=== PATIENT | female | born 1965 | race Caucasian/White ===

== ENCOUNTER 2022-11-27 13:01 | Observation (INO) ==
--- NOTE | 2022-11-27 13:13 | ED Triage Note ---
Date of Service November 27, 2022 History of Present Illness This patient was briefly evaluated while in triage. An abbreviated physical exam was performed. This patient is a 57-year-old Female who presents to the ED for evaluation of neck pain. This started Friday. No recent injury or trauma. She was active henson nday and lifting. She then went home and the pain started. Feels like "heart beat" in the back of her head. Pain with swallowing. Tried ibuprofen for the pain. 10:30-11am took 800mg of ibuprofen. Physical Exam GENERAL: 57 year old female. In no acute distress. SKIN: No lesions or rashes. HEART: Regular rate and rhythm. LUNGS: Clear to auscultation. NEURO: Alert and oriented. No deficits. MUSCULOSKELETAL: No deformities to inspection of the extremities. PSYCH: Patient is pleasant and answers all questions appropriately. Initial orders for labs and / or imaging were placed and patient was placed in the waiting area until a bed is available. Please see further documentation for the full ED course.
[2022-11-27 14:02] LABS: Basophils # (auto) 0.04 K/uL (0-0.2); Basophils % (auto) 0.4 %; Eosinophils # (auto) 0.09 K/uL (0-0.50); Eosinophils % (auto) 0.8 %; Hematocrit (blood only) 44.1 % (37.0-47.0); Hemoglobin 14.6 g/dl (12.0-16.0); Immature Granulocytes # (auto) 0.04 K/uL (0.01-0.20); Immature Granulocytes % (auto) 0.4 %; Lymphocytes # (auto) 2.44 K/uL (1.2-3.4); Lymphocytes % (auto) 22.3 %; Mean Corpuscular Hemoglobin 27.6 pg (25.0-34.0); Mean Corpuscular Hgb Conc 33.1 g/dL (32.0-36.0); Mean Corpuscular Volume 83.4 fL (80.0-100.0); Mean Platelet Volume 9.8 fL (9.4-12.4); Monocytes # (auto) 0.51 K/uL (0.11-0.59); Monocytes % (auto) 4.7 %; Neutrophils # (auto) 7.84 K/uL (1.40-6.50); Neutrophils % (auto) 71.4 %; Platelet Count 369 K/uL (130-400); RDW Coefficient of Variation 13.2 % (11.5-14.5); RDW Standard Deviation 40.2 fL (36.4-46.3); Red Blood Count 5.29 M/uL (4.20-5.40); White Blood Count 10.96 K/ul (4.8-10.8)
[2022-11-27 14:16] LABS: Albumin Globulin Ratio 1.3 (0.9-2); Albumin Level 4.4 gm/dl (3.4-5.0); BUN Creatinine Ratio 22.9 (10-20); Bilirubin,Total 0.3 mg/dl (0.2-1.0); Calcium 9.9 mg/dl (8.6-10.3); Creatinine Clr Calc Pharmacy 72.5 ml/min; Est GFR (African American) 76.6 ml/min; Est GFR (Non-African American) 66.1 ml/min; Globulin 3.3 gm/dl (2.5-4.0); Potassium 3.7 mmol/L (3.5-5.1); Total Protein 7.7 gm/dl (6.0-8.3)
--- NOTE | 2022-11-27 14:16 | Emergency Department Note ---
History of Present Illness General Chief complaint: Neck Injury/Pain Stated complaint: NECK PAIN Time Seen by Provider: 11/27/22 13:14 History of Present Illness Maximum Pain Intensity: 5 This is a 57-year-old female that presents to the emergency department via private vehicle with complaints of "neck pain". Patient notes that the neck pain began on Friday. No known trauma or injury. She does note that during the day she was watching/caring for a family member and picking her up throughout the day. She notes worsening pain since that time. She feels a "heartbeat"/pulsatile type sensation to the back of the neck. She notes pain worsens when she swallows. She denies any fevers or chills. No nausea or vomiting. No chest pain or shortness of breath. Patient does note that she has been having her thyroid followed in the outpatient setting. She notes pain is worse when she attempts to move the head left or right/move the neck. No anterior neck pain. She also noted some dizziness last Friday beyond her baseline. Home Medications Medication Instructions Recorded Confirmed Type aspirin 81 mg tablet,delayed 81 mg PO DAILY 11/27/22 11/27/22 History release dulaglutide 1.5 mg/0.5 mL 1.5 mg subcut WK 11/27/22 11/27/22 History subcutaneous pen injector (Trulicity) empagliflozin 25 mg tablet 25 mg PO DAILY 11/27/22 11/27/22 History (Jardiance) ezetimibe 10 mg tablet 10 mg PO DAILY 11/27/22 11/27/22 History fenofibrate 160 mg tablet 160 mg PO DAILY 11/27/22 11/27/22 History hydrochlorothiazide 25 mg tablet 25 mg PO DAILY 11/27/22 11/27/22 History ibuprofen 400 mg tablet 400 mg PO Q6H PRN Pain 11/27/22 11/27/22 History lisinopril 30 mg tablet 30 mg PO DAILY 11/27/22 11/27/22 History metformin 1,000 mg tablet 1,000 mg PO BIDM 11/27/22 11/27/22 History potassium chloride 10 mEq 10 meq PO BID 11/27/22 11/27/22 History tablet,extended release(part/cryst) (Klor-Con M) Allergies Allergy/AdvReac Type Severity Reaction Status Date / Time No Known Allergies Allergy Unverified 11/22/12 09:49 Past Med/Surg History Medical History Diabetes Diabetes mellitus, type II Dyslipidemia HTN (hypertension) Social History Smoking Status: Never smoker Feels Safe at Home: Yes Review of Systems A total of 10 systems reviewed and were otherwise negative Physical Exam Vital Signs Vital Signs - 24 hr 11/27/22 13:11 11/27/22 16:49 11/27/22 18:15 Temperature 37.0 C Temperature Source Temporal Artery Scan Pulse Rate 76 Pulse Rate [Finger] 76 76 Respiratory Rate 18 18 18 Respiratory Effort / Characteristics Non-Labored Spontaneous Respiratory Depth Normal Respiratory Pattern Regular Blood Pressure 134/84 Blood Pressure [Right Arm] 130/85 135/88 Blood Pressure Mean 100 Blood Pressure Mean [Right Arm] 100 103 Blood Pressure Position Sitting Pulse Oximetry 99 97 99 Oxygen Delivery Method Room Air Room Air Room Air Sepsis Recent Fever Within 48 Hours No Sepsis New/Unexplained Change in Mental Status N/A Sepsis Action Taken by Nursing No Action Required VITAL SIGNS - Vital signs and nursing notes were reviewed. Stable and afebrile. GENERAL -57-year-old female appearing her stated age who is in no acute di stress. Communicates well with provider and answers questions appropriately. SKIN - Without rashes. No meningeal or petechial rash. The skin overlying the neck is unremarkable. No break in the integument. No erythema or edema. HEAD - NC/AT. EYES - PERRL with EOMI bilaterally. Sclera anicteric. EARS - No deformities of external structures noted on gross examination bilaterally. NOSE - Midline and without cyanosis. No epistaxis or purulent drainage noted. MOUTH/OROPHARYNX - Without perioral cyanosis. Buccal mucosa pink and moist and without leukoplakia. Tongue midline with equal elevation of palate bilaterally. No tonsillar hypertrophy, erythema, or exudates noted. Good dentition noted. NECK - Neck decreased ROM noting pain. Supple to palpation. No lymphadenopathy noted. No nuchal rigidity. There is reproducible tenderness palpation overlying the bilateral paraspinous musculature of the C-spine and superior trapezius bilaterally. LUNGS - Chest wall symmetric without accessory muscle use, intercostals retractions, or central cyanosis. Normal vesicular breath sounds CTA B/L. No wh eezes, rales, or rhonchi appreciated. CARDIAC - RRR with S1/S2. No murmur, rubs, or gallops appreciated. EXTREMITIES - No clubbing or peripheral cyanosis. +5/5 strength noted in UE/LE bilaterally. NEUROLOGIC - Cranial nerves II through XII grossly intact. PSYCH - A&Ox3 and cooperates fully with examiner. Pt is very pleasant and interacts well with examiner. Course Administered Medications Discontinued Medications Acetaminophen (Acetaminophen 325 Mg Tab) 650 mg PO NOW STA Stop: 11/27/22 18:10 Last Admin: 11/27/22 18:18 Dose: 650 mg Documented By: CRISTELA Diazepam (Diazepam 5 Mg Tablet) 5 mg PO NOW ONE Stop: 11/27/22 18:09 Last Admin: 11/27/22 18:18 Dose: 5 mg Documented By: CRISTELA Ioversol (Optiray 320 500ml) 112 ml IV ONCE ONE Stop: 11/27/22 15:07 Last Admin: 11/27/22 15:07 Dose: 112 ml Documented By: SETH Medical Decision Making Laboratory Data 11/27/22 13:33 11/27/22 13:33 Lab Results 11/27/22 11/27/22 11/27/22 Range/Units 13:33 13:33 13:33 WBC 10.96 H (4.8-10.8) K/ul RBC 5.29 (4.20-5.40) M/uL Hgb 14.6 (12.0-16.0) g/dl Hct 44.1 (37.0-47.0) % MCV 83.4 (80.0-100.0) fL MCH 27.6 (25.0-34.0) pg MCHC 33.1 (32.0-36.0) g/dL RDW Std Deviation 40.2 (36.4-46.3) fL RDW Coeff of Teodora 13.2 (11.5-14.5) % Plt Count 369 (130-400) K/uL MPV 9.8 (9.4-12.4) fL Immature Gran % (Auto) 0.4 % Neut % (Auto) 71.4 % Lymph % (Auto) 22.3 % [place] % (Auto) 4.7 % Eos % (Auto) 0.8 % Baso % (Auto) 0.4 % Neut # (Auto) 7.84 H (1.40-6.50) K/uL Lymph # (Auto) 2.44 (1.2-3.4) K/uL [place] # (Auto) 0.51 (0.11-0.59) K/uL Eos # (Auto) 0.09 (0-0.50) K/uL Baso # (Auto) 0.04 (0-0.2) K/uL Immature Gran # (Auto) 0.04 (0.01-0.20) K/uL PT 10.6 (9.0-12.0) Seconds INR 1.0 (0.9-1.1) APTT 30.1 (21.0-31.0) Seconds PTT Ratio 1.1 Sodium 141 (136-145) mmol/L Potassium 3.7 (3.5-5.1) mmol/L Chloride 102 (98-107) mmol/L Carbon Dioxide 27 (21-32) mmol/L Anion Gap 12 H (3-11) BUN 22 (6-23) mg/dl Creatinine 0.96 (0.6-1.2) mg/dl Est Cr Clr Drug Dosing 72.5 ml/min Est GFR ( Amer) 76.6 ml/min Est GFR (Non-Af Amer) 66.1 ml/min BUN/Creatinine Ratio 22.9 H (10-20) Glucose 180 H (70-99(Fasting)) mg/dl POC Glucose (70-99) mg/dl Calcium 9.9 (8.6-10.3) mg/dl Total Bilirubin 0.3 (0.2-1.0) mg/dl AST 20 (13-39) U/L ALT 20 (7-52) U/L Alkaline Phosphatase 53 (34-104) U/L Total Protein 7.7 (6.0-8.3) gm/dl Albumin 4.4 (3.4-5.0) gm/dl Globulin 3.3 (2.5-4.0) gm/dl Albumin/Globulin Ratio 1.3 (0.9-2) Anaplasma Smear Lyme Disease IgG Ab (Negative) Lyme Disease IgM Ab (Negative) SARS-CoV-2, RNA, NAAT (NEGATIVE) 11/27/22 11/27/22 11/27/22 Range/Units 13:33 13:33 17:13 WBC (4.8-10.8) K/ul RBC (4.20-5.40) M/uL Hgb (12.0-16.0) g/dl Hct (37.0-47.0) % MCV (80.0-100.0) fL MCH (25.0-34.0) pg MCHC (32.0-36.0) g/dL RDW Std Deviation (36.4-46.3) fL RDW Coeff of Teodora (11.5-14.5) % Plt Count (130-400) K/uL MPV (9.4-12.4) fL Immature Gran % (Auto) % Neut % (Auto) % Lymph % (Auto) % [place] % (Auto) % Eos % (Auto) % Baso % (Auto) % Neut # (Auto) (1.40-6.50) K/uL Lymph # (Auto) (1.2-3.4) K/uL [place] # (Auto) (0.11-0.59) K/uL Eos # (Auto) (0-0.50) K/uL Baso # (Auto) (0-0.2) K/uL Immature Gran # (Auto) (0.01-0.20) K/uL PT (9.0-12.0) Seconds INR (0.9-1.1) APTT (21.0-31.0) Seconds PTT Ratio Sodium (136-145) mmol/L Potassium (3.5-5.1) mmol/L Chloride (98-107) mmol/L Carbon Dioxide (21-32) mmol/L Anion Gap (3-11) BUN (6-23) mg/dl Creatinine (0.6-1.2) mg/dl Est Cr Clr Drug Dosing ml/min Est GFR ( Amer) ml/min Est GFR (Non-Af Amer) ml/min BUN/Creatinine Ratio (10-20) Glucose (70-99(Fasting)) mg/dl POC Glucose (70-99) mg/dl Calcium (8.6-10.3) mg/dl Total Bilirubin (0.2-1.0) mg/dl AST (13-39) U/L ALT (7-52) U/L Alkaline Phosphatase (34-104) U/L Total Protein (6.0-8.3) gm/dl Albumin (3.4-5.0) gm/dl Globulin (2.5-4.0) gm/dl Albumin/Globulin Ratio (0.9-2) Anaplasma Smear See Comment Lyme Disease IgG Ab Negative (Negative) Lyme Disease IgM Ab Negative (Negative) SARS-CoV-2, RNA, NAAT NEGATIVE (NEGATIVE) 11/27/22 Range/Units 18:17 WBC (4.8-10.8) K/ul RBC (4.20-5.40) M/uL Hgb (12.0-16.0) g/dl Hct (37.0-47.0) % MCV (80.0-100.0) fL MCH (25.0-34.0) pg MCHC (32.0-36.0) g/dL RDW Std Deviation (36.4-46.3) fL RDW Coeff of Teodora (11.5-14.5) % Plt Count (130-400) K/uL MPV (9.4-12.4) fL Immature Gran % (Auto) % Neut % (Auto) % Lymph % (Auto) % [place] % (Auto) % Eos % (Auto) % Baso % (Auto) % Neut # (Auto) (1.40-6.50) K/uL Lymph # (Auto) (1.2-3.4) K/uL [place] # (Auto) (0.11-0.59) K/uL Eos # (Auto) (0-0.50) K/uL Baso # (Auto) (0-0.2) K/uL Immature Gran # (Auto) (0.01-0.20) K/uL PT (9.0-12.0) Seconds INR (0.9-1.1) APTT (21.0-31.0) Seconds PTT Ratio Sodium (136-145) mmol/L Potassium (3.5-5.1) mmol/L Chloride (98-107) mmol/L Carbon Dioxide (21-32) mmol/L Anion Gap (3-11) BUN (6-23) mg/dl Creatinine (0.6-1.2) mg/dl Est Cr Clr Drug Dosing ml/min Est GFR ( Amer) ml/min Est GFR (Non-Af Amer) ml/min BUN/Creatinine Ratio (10-20) Glucose (70-99(Fasting)) mg/dl POC Glucose 111 H (70-99) mg/dl Calcium (8.6-10.3) mg/dl Total Bilirubin (0.2-1.0) mg/dl AST (13-39) U/L ALT (7-52) U/L Alkaline Phosphatase (34-104) U/L Total Protein (6.0-8.3) gm/dl Albumin (3.4-5.0) gm/dl Globulin (2.5-4.0) gm/dl Albumin/Globulin Ratio (0.9-2) Anaplasma Smear Lyme Disease IgG Ab (Negative) Lyme Disease IgM Ab (Negative) SARS-CoV-2, RNA, NAAT (NEGATIVE) Imaging Data Radiologist's Impression: Head CTA 11/27/22 13:13 CT angio neck with con, CT angio head wo/w CLINICAL HISTORY: Posterior neck pain, pulsatile discomfort TECHNIQUE: Contiguous axial CT images of the head were acquired from the base of the skull to the vertex without intravenous contrast administration. CT angiography of the head and neck was performed following intravenous administration of iodinated contrast. Coronal and sagittal MIPS were obtained from the axial data set and were submitted for review. Automated dose lowering techniques and/or adjustment according to patient size were utilized for this examination. All measurements were calculated based on NASCET criteria. CT DOSE: 979.87 mGy.cm Comparison: None available at the time of this dictation. FINDINGS: CT head: There is no acute intracranial hemorrhage or evidence of acute territorial infarction. There is a ill-defined enhancing mass at the left skull base which is traversed by the right internal carotid artery. Small thyroid nodules are seen which do not require follow-up by ACR criteria. CTA Neck: A 3 vessel aortic arch is shown. There is no significant atherosclerotic plaque in the aortic arch or the origins of the innominate, left common carotid, and left subclavian arteries. The common carotid, external carotid, cervical segments of the internal carotid arteries, and the cervical segments of the vertebral arteries are patent without hemodynamically significant stenosis. The right vertebral artery is dominant. CTA Head: The anterior and posterior cerebral circulations are patent. origin of the bilateral posterior cerebral arteries noted. IMPRESSION: 1. There is an enhancing left skull base lesion without significant underlying bony erosion. Findings are nonspecific but may represent benign or malignant neoplasm. No arterial aneurysm is seen. MRI with contrast is recommended for further evaluation. 2. No occlusion, hemodynamically significant stenosis, or dissection in the major cervical arteries. 3. No occlusion, hemodynamically significant stenosis, aneurysm, dissection, or arteriovenous malformation in the major intracranial arteries. Assessment of stenosis of the internal carotid arteries is based on NASCET criteria. ACT 112: Positive. There are findings on this exam that require communication between the performing entity and the patient following Patient Test Result Information Act ([place] Act 112) guidelines. Electronically signed by: Ignacio Cerna M.D. 11/27/2022 3:33 PM Neck CTA 11/27/22 13:13 CT angio neck with con, CT angio head wo/w CLINICAL HISTORY: Posterior neck pain, pulsatile discomfort TECHNIQUE: Contiguous axial CT images of the head were acquired from the base of the skull to the vertex without intravenous contrast administration. CT angiography of the head and neck was performed following intravenous administration of iodinated contrast. Coronal and sagittal MIPS were obtained from the axial data set and were submitted for review. Automated dose lowering techniques and/or adjustment according to patient size were utilized for this examination. All measurements were calculated based on NASCET criteria. CT DOSE: 979.87 mGy.cm Comparison: None available at the time of this dictation. FINDINGS: CT head: There is no acute intracranial hemorrhage or evidence of acute territorial infarction. There is a ill-defined enhancing mass at the left skull base which is traversed by the right internal carotid artery. Small thyroid nodules are seen which do not require follow-up by ACR criteria. CTA Neck: A 3 vessel aortic arch is shown. There is no significant atherosclerotic plaque in the aortic arch or the origins of the innominate, left common carotid, and left subclavian arteries. The common carotid, external carotid, cervical segments of the internal carotid arteries, and the cervical segments of the vertebral arteries are patent without hemodynamically significant stenosis. The right vertebral artery is dominant. CTA Head: The anterior and posterior cerebral circulations are patent. origin of the bilateral posterior cerebral arteries noted. IMPRESSION: 1. There is an enhancing left skull base lesion without significant underlying bony erosion. Findings are nonspecific but may represent benign or malignant ne oplasm. No arterial aneurysm is seen. MRI with contrast is recommended for further evaluation. 2. No occlusion, hemodynamically significant stenosis, or dissection in the major cervical arteries. 3. No occlusion, hemodynamically significant stenosis, aneurysm, dissection, or arteriovenous malformation in the major intracranial arteries. Assessment of stenosis of the internal carotid arteries is based on NASCET criteria. ACT 112: Positive. There are findings on this exam that require communication between the performing entity and the patient following Patient Test Result Information Act ([place] Act 112) guidelines. Electronically signed by: Ignacio Cerna M.D. 11/27/2022 3:33 PM MDM Narrative Patient was seen and evaluated as above in room D09. Review was performed of triage nursing notes and vital signs. After obtaining a thorough history and physical examination the above work up was performed. Patient presents to us today for evaluation of neck discomfort. No known trauma or injury. Patient notes that the pain is severe to the point where she was not even able to sleep last night. In addition to the pain she also notes associated ongoing dizziness that she describes as being every day but worsened last Friday. She has never had this happen before. Current pain 5/10. She also notes ongoing fatigue. Options of care were discussed with the patient. IV access was established. Labs were drawn. CT angio studies were obtained of the head and neck. Labs reveal mild leukocytosis 10.96. No anemia. No emergent metabolic disturbance. Hyperglycemia 180. [place] labs were ordered and Lyme testing presently negative with anaplasmosis testing pending. COVID test negative. CT angios studies as above. There is comment of "an enhancing left skull base lesion without significant underlying bony erosion. Findings are nonspecific but may represent benign or malignant neoplasm. No arterial aneurysm is seen. MRI with contrast is recommended for further evaluation.". I reviewed this finding with the patient. I also called the radiologist who read the study to review this. Although this finding may be incidental and not the cause of the patient's neck pain at this time, with the patient having no other identified trauma or injury to the neck and her pain being close to this abnormality and also with the patient describing it as with a "heartbeat" and worse with swallowing I do believe that MRI assessment is reasonable while here in the hospital. The patient notes that she is extremely claustrophobic and will need to be sedated for the MRI. I offered anxiolytics such as Ativan and she respectfully declined noting that she would need to be fully sedated. I then found it reasonable to discuss patient's finding on CT and her symptoms with neurology. I spoke to Dr. Anaya with [facility] neurology. At this time we do agree with the MRI. I did inform him on the unique circumstances as the patient is claustrophobic. I am concerned with the patient's severity of pain to the point where she is not able to sleep. With other symptoms as above and do believe it would be in the patient's best interest to obtain the MRI while here in the hospital. At this time we will proceed with inpatient management and then obtain the MRI to further evaluate the patient's area of discomfort and further characterize the abnormality is identified by CT imaging. I did present the patient with options. I informed her that we could discharge her home to obtain this as an outpatient versus inpatient stay to further evaluate her discomfort, treat her discomfort and obtain the MRIs. Patient does prefer this option rather than discharge home which I believe is reasonable. Case discussed with the hospitalist service. Please refer to further documentation regarding her stay. Case was discussed with the attending physician. GCS: 15 In the evaluation and treatment of this patient the following differential diagnoses were entertained: Strain, sprain, infection, fracture, dislocation, subluxation, contusion, dissection, among others. Impression & Plan Acute neck pain, Abnormal head CT Discharge Plan Visit Data Chief Complaint: Neck Injury/Pain Stated Complaint: NECK PAIN ED Provider: Jose Cadena ED Midlevel Provider: Curtis Love Discharge Problem: Acute neck pain, Abnormal head CT Patient Disposition: Admitted As Inpatient Condition: Good Forms Stand Alone Forms: My [facility] Prescriptions Prescriptions: No Action aspirin 81 mg tablet,delayed release (DR/EC) 81 mg PO DAILY metformin 1,000 mg tablet 1,000 mg PO BIDM lisinopril 30 mg tablet 30 mg PO DAILY hydrochlorothiazide 25 mg tablet 25 mg PO DAILY ezetimibe 10 mg tablet 10 mg PO DAILY potassium chloride [Klor-Con M10] 10 mEq tablet,ER particles/crystals 10 meq PO BID fenofibrate 160 mg tablet 160 mg PO DAILY Jardiance 25 mg tablet 25 mg PO DAILY Trulicity 1.5 mg/0.5 mL pen injector 1.5 mg SUBCUT WK ibuprofen 400 mg Tablet 400 mg PO Q6H PRN (Reason: Pain) Referrals Referrals: Tasha Trujillo PA-C [Primary Care Provider] -
[2022-11-27 14:29] LABS: Partial Thromboplastin Ratio 1.1; Partial Thromboplastin Time 30.1 Seconds (21.0-31.0); Prothrombin Time 10.6 Seconds (9.0-12.0)
[2022-11-27] MEDS ORDERED: OPTIRAY 320 500ml IV ONE (15:06)
--- NOTE | 2022-11-27 15:35 | CT Scan Report ---
CT angio neck with con, CT angio head wo/w CLINICAL HISTORY: Posterior neck pain, pulsatile discomfort TECHNIQUE: Contiguous axial CT images of the head were acquired from the base of the skull to the gladys lisa without intravenous contrast administration. CT angiography of the head and neck was performed f ollowing intravenous administration of iodinated contrast. Coronal and sagittal MIPS were obtained fr om the axial data set and were submitted for review. Automated dose lowering techniques and/or adjus tment according to patient size were utilized for this examination. All measurements were calculated based on NASCET criteria. CT DOSE: 979.87 mGy.cm Comparison: None available at the time of this dictation. FINDINGS: CT head: There is no acute intracranial hemorrhage or evidence of acute territorial infarction. There is a ill-defined enhancing mass at the left skull base which is traversed by the right internal gibson tid artery. Small thyroid nodules are seen which do not require follow-up by ACR criteria. CTA Neck: A 3 vessel aortic arch is shown. There is no significant atherosclerotic plaque in the aor tic arch or the origins of the innominate, left common carotid, and left subclavian arteries. The co mmon carotid, external carotid, cervical segments of the internal carotid arteries, and the cervical segments of the vertebral arteries are patent without hemodynamically significant stenosis. The right vertebral artery is dominant. CTA Head: The anterior and posterior cerebral circulations are patent. origin of the bilateral posterior cerebral arteries noted. IMPRESSION: 1. There is an enhancing left skull base lesion without significant underlying bony erosion. Finding s are nonspecific but may represent benign or malignant neoplasm. No arterial aneurysm is seen. MRI w ith contrast is recommended for further evaluation. 2. No occlusion, hemodynamically significant stenosis, or dissection in the major cervical arteries. 3. No occlusion, hemodynamically significant stenosis, aneurysm, dissection, or arteriovenous malfor mation in the major intracranial arteries. Assessment of stenosis of the internal carotid arteries is based on NASCET criteria. ACT 112: Positive. There are findings on this exam that require communication between the performing entity and the patient following Patient Test Result Information Act ([place] Act 112) guidelines. Electronically signed by: Ignacio Cerna M.D. 11/27/2022 3:33 PM
[2022-11-27 16:09] LABS: Lyme Ab IgG w/WB Rflx Negative (Negative); Lyme Ab IgM w/WB Rflx Negative (Negative)
--- NOTE | 2022-11-27 17:31 | History & Physical Report ---
Date of Service November 27, 2022 Assessment & Plan (1) Skull lesion: (2) Abnormal head CT: Plan: Extracranial mass Patient is 57-year-old female with PMH HTN, dyslipidemia, DM II presented to ER with complaint of neck pain x 3 days. Ongoing dizziness with looking forward and bending down. In ER Vitals stable CTA HEAD/CTA NECK: 1. There is an enhancing left skull base lesion without significant underlying bony erosion. Findings are nonspecific but may represent benign or malignant neoplasm. No arterial aneurysm is seen. MRI with contrast is recommended for further evaluation. 2. No occlusion, hemodynamically significant stenosis, or dissection in the major cervical arteries. 3. No occlusion, hemodynamically significant stenosis, aneurysm, dissection, or arteriovenous malformation in the major intracranial arteries. MRI brain with and without contrast Neurology consult. ER provider spoke with population health manager, Dr Anaya who suggested MRI brain Anesthesia consult for assistance with sedation for MRI as patient reports severe claustrophobia Patient acceptable risk for anesthesia CBC, BMP in am (3) Diabetes mellitus, type II: Plan: A1c: 7.0 on 08/07/2022 Hold home metformin, Trulicity, Jardiance Novolog sliding scale per protocol (4) HTN (hypertension): Plan: Continue lisinopril Hold HCTZ (5) Dyslipidemia: Plan: Continue ezetimibe, fenofibrate DVT Prophylaxis SCDs Full Code as per discussion with pt Follows with Tasha Trujillo PA-C for routine care Pt was seen and care coordinated with Dr Zhang. See addendum I spent a total of 78 minutes reviewing notes, outpatient records, labs, medication, coordinating, documenting and providing care for this patient excluding time spent in the performance of separately billed services. History of Present Illness Chief Complaint: Neck pain Primary Care Provider: Tasha Trujillo PA-C Patient is 57-year-old female with PMH HTN, dyslipidemia, DM II presented to ER with complaint of neck pain x3 days. Patient states has been having ongoing dizziness with looking forward and bending down. Also had reported some left sided headache several months ago. Was seen at PCP's office in 07/2022 and had c- spine x-ray that showed degenerative changes. US head and neck from 08/2022 showed nodules in left thyroid node and repeat ultrasound was recommended in one year. Patient states 3 days ago lifted her niece. After she started with pain to posterior superior neck and inferior occipital region. Patient reports pain is pulsatile in nature. Pain aggravated with range of motion of head and neck. States now also feeling dizzy with movement of head up and down. She states she feels like she has had some blurry vision when the pain is more severe and pulsatile in nature. Patient states is physically active and gardens and push mows a large yard. Denies any exertional SOB/CP. Denies fever/chills, diaphoresis, N/V/D/C, syncope, vision loss, diplopia, CP, SOB, palpitations, cough, sore throat, choking, ear discharge, tinnitus rhinorrhea, abdominal pain, paresthesias, extremity weakness, extremity edema, rashes, urinary symptoms. Allergies Allergy/AdvReac Type Severity Reaction Status Date / Time No Known Allergies Allergy Unverified 11/22/12 09:49 Home Medications Medication Instructions Recorded Confirmed Type aspirin 81 mg tablet,delayed 81 mg PO DAILY 11/27/22 11/27/22 History release dulaglutide 1.5 mg/0.5 mL 1.5 mg subcut WK 11/27/22 11/27/22 History subcutaneous pen injector (Trulicity) empagliflozin 25 mg tablet 25 mg PO DAILY 11/27/22 11/27/22 History (Jardiance) ezetimibe 10 mg tablet 10 mg PO DAILY 11/27/22 11/27/22 History fenofibrate 160 mg tablet 160 mg PO DAILY 11/27/22 11/27/22 History hydrochlorothiazide 25 mg tablet 25 mg PO DAILY 11/27/22 11/27/22 History ibuprofen 400 mg tablet 400 mg PO Q6H PRN Pain 11/27/22 11/27/22 History lisinopril 30 mg tablet 30 mg PO DAILY 11/27/22 11/27/22 History metformin 1,000 mg tablet 1,000 mg PO BIDM 11/27/22 11/27/22 History potassium chloride 10 mEq 10 meq PO BID 11/27/22 11/27/22 History tablet,extended release(part/cryst) (Klor-Con M) Past Med/Surg History Medical History (Updated 11/27/22 @ 21:07 by Deedee Oro PA-C) Diabetes Diabetes mellitus, type II Dyslipidemia HTN (hypertension) Surgical History (Updated 11/27/22 @ 20:57 by Deedee Oro PA-C) History of cholecystectomy Family History (Updated 11/27/22 @ 20:57 by Deedee Oro PA-C) Other Breast cancer Social History (Updated 11/27/22 @ 20:57 by Deedee Oro PA-C) Smoking Status: Never smoker Hx Alcohol Use: No Hx Substance Use: No Feels Safe at Home: Yes Review of Systems Review of Systems: All systems reviewed & are unremarkable except as noted in HPI & below Physical Exam Physical Exam: General: no acute distress, WDWN Head: normocephalic, atraumatic Eyes: PERRL, EOM's intact, conjunctiva non-injected, anicteric ENT: normal inspection external ears, nose, mucous membranes moist Neck: supple, trachea midline, +tenderness to palpation posterior superior aspect neck, +spasm noted right paraspinous musculature, no skin discoloration, +tenderness with ROM neck Lungs: clear, no respiratory distress, no wheezing/rhonchi/rales CV: RRR, no murmur, no pretibial edema Abd: normal BS, soft, non-tender Ext: no cyanosis, no calf tenderness Neuro: A&O x 3, normal affect, visual bowden intact. facial sensation is intact and symmetric, face is strong and symmetric, hearing grossly intact, soft palate elevates symmetrically, no dysarthria, shoulder shrug intact tongue is midline, normal movement, no fasciculations. Strength 5/5 throughout and equal bilaterally Skin: warm, dry Results & Data Results & Data Vital Signs (Past 12 Hours) Vital Signs Temp Pulse Pulse Resp BP BP Pulse Ox 11/27/22 16:49 76 18 130/85 97 11/27/22 13:11 37.0 C 76 18 134/84 99 O2 Del Method 11/27/22 16:49 Room Air 11/27/22 13:11 Room Air Laboratory Results Short CBC 11/27/22 Range/Units 13:33 WBC 10.96 H (4.8-10.8) K/ul Hgb 14.6 (12.0-16.0) g/dl Hct 44.1 (37.0-47.0) % Plt Count 369 (130-400) K/uL BMP 11/27/22 13:33 Sodium 141 Potassium 3.7 Chloride 102 Carbon Dioxide 27 BUN 22 Creatinine 0.96 Glucose 180 H Calcium 9.9 Liver Function 11/27/22 Range/Units 13:33 Total Bilirubin 0.3 (0.2-1.0) mg/dl AST 20 (13-39) U/L ALT 20 (7-52) U/L Alkaline Phosphatase 53 (34-104) U/L Albumin 4.4 (3.4-5.0) gm/dl Diagnostic Findings Head CTA 11/27/22 13:13 CT angio neck with con, CT angio head wo/w CLINICAL HISTORY: Posterior neck pain, pulsatile discomfort TECHNIQUE: Contiguous axial CT images of the head were acquired from the base of the skull to the vertex without intravenous contrast administration. CT angiography of the head and neck was performed following intravenous administration of iodinated contrast. Coronal and sagittal MIPS were obtained from the axial data set and were submitted for review. Automated dose lowering techniques and/or adjustment according to patient size were utilized for this examination. All measurements were calculated based on NASCET criteria. CT DOSE: 979.87 mGy.cm Comparison: None available at the time of this dictation. FINDINGS: CT head: There is no acute intracranial hemorrhage or evidence of acute territorial infarction. There is a ill-defined enhancing mass at the left skull base which is traversed by the right internal carotid artery. Small thyroid nodules are seen which do not require follow-up by ACR criteria. CTA Neck: A 3 vessel aortic arch is shown. There is no significant atherosclerotic plaque in the aortic arch or the origins of the innominate, left common carotid, and left subclavian arteries. The common carotid, external carotid, cervical segments of the internal carotid arteries, and the cervical segments of the vertebral arteries are patent without hemodynamically significant stenosis. The right vertebral artery is dominant. CTA Head: The anterior and posterior cerebral circulations are patent. origin of the bilateral posterior cerebral arteries noted. IMPRESSION: 1. There is an enhancing left skull base lesion without significant underlying bony erosion. Findings are nonspecific but may represent benign or malignant neoplasm. No arterial aneurysm is seen. MRI with contrast is recommended for further evaluation. 2. No occlusion, hemodynamically significant stenosis, or dissection in the major cervical arteries. 3. No occlusion, hemodynamically significant stenosis, aneurysm, dissection, or arteriovenous malformation in the major intracranial arteries. Assessment of stenosis of the internal carotid arteries is based on NASCET criteria. ACT 112: Positive. There are findings on this exam that require communication between the performing entity and the patient following Patient Test Result Information Act ([place] Act 112) guidelines. Electronically signed by: Ignacio Cerna M.D. 11/27/2022 3:33 PM Neck CTA 11/27/22 13:13 CT angio neck with con, CT angio head wo/w CLINICAL HISTORY: Posterior neck pain, pulsatile discomfort TECHNIQUE: Contiguous axial CT images of the head were acquired from the base of the skull to the vertex without intravenous contrast administration. CT angiography of the head and neck was performed following intravenous administration of iodinated contrast. Coronal and sagittal MIPS were obtained from the axial data set and were submitted for review. Automated dose lowering techniques and/or adjustment according to patient size were utilized for this examination. All measurements were calculated based on NASCET criteria. CT DOSE: 979.87 mGy.cm Comparison: None available at the time of this dictation. FINDINGS: CT head: There is no acute intracranial hemorrhage or evidence of acute territorial infarction. There is a ill-defined enhancing mass at the left skull base which is traversed by the right internal carotid artery. Small thyroid nodules are seen which do not require follow-up by ACR criteria. CTA Neck: A 3 vessel aortic arch is shown. There is no significant atherosclerotic plaque in the aortic arch or the origins of the innominate, left common carotid, and left subclavian arteries. The common carotid, external carotid, cervical segments of the internal carotid arteries, and the cervical segments of the vertebral arteries are patent without hemodynamically s ignificant stenosis. The right vertebral artery is dominant. CTA Head: The anterior and posterior cerebral circulations are patent. origin of the bilateral posterior cerebral arteries noted. IMPRESSION: 1. There is an enhancing left skull base lesion without significant underlying bony erosion. Findings are nonspecific but may represent benign or malignant neoplasm. No arterial aneurysm is seen. MRI with contrast is recommended for further evaluation. 2. No occlusion, hemodynamically significant stenosis, or dissection in the major cervical arteries. 3. No occlusion, hemodynamically significant stenosis, aneurysm, dissection, or arteriovenous malformation in the major intracranial arteries. Assessment of stenosis of the internal carotid arteries is based on NASCET criteria. ACT 112: Positive. There are findings on this exam that require communication between the performing entity and the patient following Patient Test Result Information Act ([place] Act 112) guidelines. Electronically signed by: Ignacio Cerna M.D. 11/27/2022 3:33 PM ECG Rhythm: sinus rhythm Supervising Physician Co-Signing Physician Notes I have seen and examined the patient and have discussed the case with the provider above. I agree with the assessment and plan as stated. 57 yo F with persistent symptoms of dizziness with a change in head position and acute on chronic neck pain. 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 There is an incidental finding of a bony lesion with possible additional vascular complication. Patient reports the pain is intermittent and triggered by position, relieved with Tylenol and other pain medications. When pain is present it radiates to the lower left side described as shooting, excruciating pain. There are times the pain is not present. When it is throbbing she reports it hurts to swallow. She has a tension headache and restricted cervical ROM in all planes of motion. She denies sensation issues, denies visual changes. On physical she has no gross focal neurologic deficits. She is hemodynamically stable and afebrile and tolerating PO. Cardiopulmonary exam is WNL. She is mentating clearly. Pupils are PERRLA and EOMI, CN 2-12 with no gross focal deficits. Workup today reveals CBC WNL, normal chemistry, normal alkaline phosphatase. CT head and neck reveal an enhancing left skull lesion without significant underlying bony erosion. She also had an incidental arachnoid cyst on the left. MRI cannot be performed without anesthesia which is planned for am. EKG reveals NSR with a rate of 72 bpm. 1. Neck pain likely musculoskeletal 2. Extracranial mass traversed by right internal carotid artery 3. Positional dizziness 4. DMII-controlled 57 yo F presents with acute on chronic neck pain related to neck spasms and mu scular hypertrophy. Workup reveals an extracranial mass with the internal carotid artery traversing this. There is no aneurysm or dissection of the artery on CT imaging. Awaiting an MRI to better elucidate the issue. Low threshold to transfer or send her as outpatient to tertiary care center given the lack of vascular or neurosurgical specialties at this facility. This was discussed with her and she is understanding of that. For now valium and Tylenol are addressing the muscle spasms and pain in her neck which are likely a reaction to either painting or possibly this mass. Dizziness is long standing for over one year, and cause is unclear with possible contributing factors including this mass or a medication side effect. Cont ice, and supportive care to shoulders and upper back. MRI under anesthesia in am. Additional recommendations pending outcome of MRI. DO Vicente
[2022-11-27] MEDS ORDERED: diazePAM 5 MG TABLET PO ONE (18:08)
[2022-11-27] MEDS ORDERED: ACETAMINOPHEN 325 MG TAB PO STA (18:09)
[2022-11-27] MEDS ORDERED: traMADol HCL 50 MG TABLET PO PRN (21:06)
[2022-11-27] MEDS ORDERED: POLYETHYLENE (MIRALAX) 17 GM PACK PO PRN (21:06)
[2022-11-27] MEDS ORDERED: ONDANSETRON INJ 2 MG/ML 2 ML VIAL IV PRN (21:06)
[2022-11-27] MEDS ORDERED: INSULIN ASPART PER UNIT CHARGE SC SCH (21:06)
[2022-11-27] MEDS ORDERED: GLUCOSE 10 TAB/TUBE PO PRN (21:06)
[2022-11-27] MEDS ORDERED: GLUCAGON FOR INJ 1 MG VIAL SQ PRN (21:06)
[2022-11-27] MEDS ORDERED: GLUCOSE 40% GEL 15 GM TUBE PO PRN (21:06)
[2022-11-27] MEDS ORDERED: diazePAM 5 MG TABLET PO PRN (21:06)
[2022-11-27] MEDS ORDERED: DEXTROSE 50% 50 ML SYRINGE IV PRN (21:06)
[2022-11-27] MEDS ORDERED: CARBOHYDRATES FOR HYPOGLYCEMIA PO PRN (21:06)
[2022-11-27] MEDS: ACETAMINOPHEN 500 MG TAB PO SCH (21:30)
[2022-11-27] MEDS: POTASSIUM CHLORIDE 10 MEQ TABCR PO SCH (21:30)
--- NOTE | 2022-11-27 21:44 | Anesthesiology Consultation ---
Date of Service November 27, 2022 Assessment & Plan (1) Encounter for pre-operative examination: Chart Review Chart Review: Acceptable Risk for Surgery History Height/Weight Height: 5 ft 5 in Weight: 89.9 kg Allergies Allergy/AdvReac Type Severity Reaction Status Date / Time No Known Allergies Allergy Unverified 11/22/12 09:49 Medications Home Medications Medication Instructions Recorded Confirmed Last Taken aspirin 81 mg tablet,delayed 81 mg PO DAILY 11/27/22 11/27/22 11/27/22 release dulaglutide 1.5 mg/0.5 mL 1.5 mg subcut WK 11/27/22 11/27/22 11/24/22 subcutaneous pen injector (Trulicity) empagliflozin 25 mg tablet 25 mg PO DAILY 11/27/22 11/27/22 11/27/22 (Jardiance) ezetimibe 10 mg tablet 10 mg PO DAILY 11/27/22 11/27/22 11/27/22 fenofibrate 160 mg tablet 160 mg PO DAILY 11/27/22 11/27/22 11/27/22 hydrochlorothiazide 25 mg tablet 25 mg PO DAILY 11/27/22 11/27/22 11/27/22 ibuprofen 400 mg tablet 400 mg PO Q6H PRN Pain 11/27/22 11/27/22 Unknown lisinopril 30 mg tablet 30 mg PO DAILY 11/27/22 11/27/22 11/27/22 metformin 1,000 mg tablet 1,000 mg PO BIDM 11/27/22 11/27/22 11/27/22 potassium chloride 10 mEq 10 meq PO BID 11/27/22 11/27/22 11/27/22 tablet,extended release(part/cryst) (Klor-Con M) Active Medications Generic Name Dose Route Start Last Admin Trade Name Freq PRN Reason Stop Dose Admin Acetaminophen 1,000 mg 11/27/22 22:00 11/27/22 21:30 Acetaminophen 500 Mg Tab PO 12/27/22 21:59 1,000 mg Q8H MARTHA Administration Potassium Chloride 10 meq 11/27/22 21:06 11/27/22 21:30 Potassium Chloride 10 Meq Tabcr PO 12/27/22 21:05 10 meq BID MARTHA Administration Past Medical History Medical History Diabetes Diabetes mellitus, type II Dyslipidemia HTN (hypertension) Past Family History Family History Other Breast cancer Past Surgical History Surgical History History of cholecystectomy Social History Smoking Status: Never smoker Hx Alcohol Use: No Hx Substance Use: No Physical Exam Vital Signs Last Vital Signs Temp 37.0 C 11/27/22 13:11 Pulse 76 11/27/22 18:15 Resp 18 11/27/22 18:15 BP 135/88 11/27/22 18:15 Pulse Ox 99 11/27/22 18:15 O2 Del Method Room Air 11/27/22 18:15 Testing Laboratory Results 11/27/22 13:33 11/27/22 13:33 PT 10.6 Seconds (9.0-12.0) 11/27/22 13:33 INR 1.0 (0.9-1.1) 11/27/22 13:33 APTT 30.1 Seconds (21.0-31.0) 11/27/22 13:33 11/27/22 11/27/22 21:18 18:17 POC Glucose 130 H 111 H Electrocardiogram Date: 11/27/22 Findings: + NSR @ (72)
[2022-11-27] MEDS: LANTUS PER UNIT CHARGE SQ SCH (21:52)
[2022-11-28] MEDS ORDERED: Nursing to Pharmacy Communication SCH (00:30)
[2022-11-28] MEDS: ACETAMINOPHEN 500 MG TAB PO SCH ×2 (05:37→14:06)
[2022-11-28] MEDS: INSULIN ASPART PER UNIT CHARGE SC SCH ×2 (06:25→12:14)
[2022-11-28 07:22] LABS: Basophils # (auto) 0.04 K/uL (0-0.2); Basophils % (auto) 0.4 %; Eosinophils # (auto) 0.13 K/uL (0-0.50); Eosinophils % (auto) 1.4 %; Hematocrit (blood only) 40.3 % (37.0-47.0); Hemoglobin 13.7 g/dl (12.0-16.0); Immature Granulocytes # (auto) 0.04 K/uL (0.01-0.20); Immature Granulocytes % (auto) 0.4 %; Lymphocytes % (auto) 22.3 %; Mean Corpuscular Volume 82.2 fL (80.0-100.0); Mean Platelet Volume 9.8 fL (9.4-12.4); Monocytes # (auto) 0.63 K/uL (0.11-0.59); Monocytes % (auto) 6.7 %; Neutrophils # (auto) 6.47 K/uL (1.40-6.50); Neutrophils % (auto) 68.8 %; Platelet Count 314 K/uL (130-400); RDW Coefficient of Variation 13.3 % (11.5-14.5); White Blood Count 9.41 K/ul (4.8-10.8)
[2022-11-28 07:42] LABS: Calcium 9.3 mg/dl (8.6-10.3); Creatinine Clr Calc Pharmacy 81.9 ml/min; Est GFR (African American) 88.8 ml/min; Est GFR (Non-African American) 76.6 ml/min; Potassium 3.6 mmol/L (3.5-5.1)
[2022-11-28] MEDS: POTASSIUM CHLORIDE 10 MEQ TABCR PO SCH (08:30)
[2022-11-28] MEDS: LANTUS PER UNIT CHARGE SQ SCH (08:35)
[2022-11-28] MEDS ORDERED: lisinopril 10 MG TAB PO SCH (09:00)
[2022-11-28] MEDS ORDERED: EZETIMIBE 10 MG TABLET PO SCH (09:00)
[2022-11-28] MEDS ORDERED: fentaNYL citrate PF 100 MCG/2 ML VIAL ONE (11:56)
[2022-11-28] MEDS ORDERED: LIDOCAINE 2% 2 ML VIAL/AMP(20MG/ML) INFIL ONE (11:56)
[2022-11-28] MEDS ORDERED: PROPOFOL IV EMULSION 10 MG/ML 20 ML VIAL IV ONE (11:56)
[2022-11-28] MEDS ORDERED: MIDAZOLAM HCL 1 MG/ML 2ML VIAL ONE ×2 (11:56)
[2022-11-28] MEDS ORDERED: KETAMINE 50 MG/5 ML SYRINGE ONE (11:57)
[2022-11-28] MEDS ORDERED: ePHEDrine sulfate 50 MG/ML AMP IV PRN (12:05)
[2022-11-28] MEDS ORDERED: ATROPINE SULFATE 0.1 MG/ML 10ML SYR IV PRN (12:05)
[2022-11-28] MEDS ORDERED: fentaNYL citrate PF 100 MCG/2 ML VIAL IV PRN (12:05)
[2022-11-28] MEDS ORDERED: ONDANSETRON INJ 2 MG/ML 2 ML VIAL IV PRN (12:05)
--- NOTE | 2022-11-28 13:36 | Magnetic Resonance Report ---
MRI OF THE BRAIN WITHOUT AND WITH IV CONTRAST CLINICAL HISTORY: Skull lesion. COMPARISON STUDY: Head CT and CTA of the head November 27, 2022. TECHNIQUE: Utilizing a 1.5 Denise magnet and dedicated coil, multiplanar, multiecho imaging of the br ain was performed pre and postcontrast administration. IV administration of 9 mL of Gadavist contras t was uneventful. Thin cut T1 post contrast imaging was performed. FINDINGS: There are no foci of restricted diffusion to suggest acute infarct. No acute intracranial h emorrhage is present. Ventricular system is unremarkable. Basal cisterns are patent. Note is made of a CSF signal intensity extra-axial lesion within the left middle cranial fossa that measures 5.4 x 4 x 5.1 cm. In addition, there is an enhancing extra-axial lesion involving the petrous apex extending into the clivus and across the synchondrosis. This lobulated mass measures 4.5 x 2.8 x 2.7 cm and enc ases the left cavernous carotid and extends into the cavernous sinus and sella. There is also extensi on into the prepontine cistern. Adjacent dural thickening and enhancement suggests a dural tail. This mass also likely extends into the left Meckel's cave. No additional intracranial masses are present. Orbits are unremarkable. There is no evidence for sinusitis. IMPRESSION: 1. No acute intracranial findings. 2. Enhancing extra-axial mass, measuring 4.5 x 2.8 x 2.7 cm, within the left petrous apex extending i nto the clivus. 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 3. 5.4 x 4 x 5.1 cm left middle cranial fossa arachnoid cyst. ACT 112: Positive. There are findings on this exam that require communication between the performing entity and the patient following Patient Test Result Information Act ([place] Act 112) guidelines. Electronically signed by: Vinh Dai M.D. 11/28/2022 1:34 PM
--- NOTE | 2022-11-28 13:59 | Anesthesiology Progress Note ---
Date of Service November 28, 2022 Anesthesia Post Procedure Vital Signs Vital Signs: Temp Pulse Pulse Pulse Resp BP BP 11/28/22 13:50 36.2 C L 78 18 124/76 11/28/22 13:40 82 18 127/80 11/28/22 13:30 81 20 134/79 11/28/22 13:26 36.1 C L 85 16 130/83 11/28/22 11:58 36.5 C 85 20 146/88 H 11/28/22 07:30 36.5 C 74 18 134/79 11/27/22 21:00 36.5 C 75 16 154/84 H 11/27/22 18:15 76 18 135/88 11/27/22 16:49 76 18 130/85 Pulse Ox O2 Del Method O2 Flow Rate 11/28/22 13:50 96 Room Air 11/28/22 13:40 97 Room Air 11/28/22 13:30 99 Room Air 11/28/22 13:26 98 Oxymask 6 11/28/22 11:58 97 Room Air 11/28/22 07:30 97 Room Air 11/27/22 21:00 97 Room Air 11/27/22 18:15 99 Room Air 11/27/22 16:49 97 Room Air Pain Intensity Neck: Pain Intensity: 1 Transfer of Care Handoff Completed per policy Notes Mental Status: alert / awake / arousable and participated in evaluation Patient Amnestic to Procedure: Yes Nausea / Vomiting: adequately controlled Pain: adequately controlled Airway Patency, RR, SpO2: stable & adequate BP & HR: stable & adequate Hydration State: stable & adequate Anesthetic Complications: no major complications apparent and Pt Satisfied with anesthetic care
[2022-11-28] MEDS ORDERED: CYCLOBENZAPRINE HCL 5 MG TAB PO PRN (14:40)
--- NOTE | 2022-11-28 14:51 | Neurology Consultation ---
Date of Consultation November 28, 2022 Assessment & Plan (1) Acute neck pain: Given the temporal relationship of her symptoms to prolonged painting over her head, I suspect this is a neck muscle strain and unrelated to the meningioma. While there are case reports of cervical dystonia from tumors in this location, this is less likely the cause. Recommend conservative measures - rest/ice/therapy and possible muscle relaxants. She will need neurosurgery referral for tumor tracking purposes as an outpatient. Please contact us with any further questions. Telehealth Consultation Telehealth Information Telehealth Information: I performed this visit using a real-time telehealth connection between my location and the patients location ([facility]). After connecting through interactive tele-video, patient was identified by name and date of and/or wristband check.Patient (or authorized healthcare national sales representative) was informed that this was a telemedicine visit and it was being conducted confidentially over secure lines. My office door was closed and no one else was present in the room with me.Patient (or authorized healthcare national sales representative) provided consent to proceed with the visit, expressed an understanding of privacy and security of the telemedicine visit, and gave permission to have a hospital national sales representative in the room in order to assist with the visit and to conduct portions of the visit, as needed. I informed the patient (or authorized healthcare national sales representative) that I reviewed their record and presented the opportunity for them to ask any questions regarding the visit today. The patient agreed to participate. History of Present Illness Reason for Consultation: Neck spasm Requesting Physician: Dr. Laguna Attending Physician: Kurt Laguna MD History of Present Illness Ceci Masters is a 57 yo F presenting with neck pain and dizziness after painting her house while looking up. She describes intermittent neck spasms that make it painful for her to swallow. In the course of her ED workup a presumed meningioma was discovered and she was admitted for further workup. She denies any weakness, numbness, change in speech or vision. No history of headaches or similar episodes of neck pain in the past. Allergies Allergy/AdvReac Type Severity Reaction Status Date / Time No Known Allergies Allergy Unverified 11/22/12 09:49 Home Medications Medication Instructions Recorded Confirmed Type aspirin 81 mg tablet,delayed 81 mg PO DAILY 11/27/22 11/27/22 History release dulaglutide 1.5 mg/0.5 mL 1.5 mg subcut WK 11/27/22 11/27/22 History subcutaneous pen injector (Trulicity) empagliflozin 25 mg tablet 25 mg PO DAILY 11/27/22 11/27/22 History (Jardiance) ezetimibe 10 mg tablet 10 mg PO DAILY 11/27/22 11/27/22 History fenofibrate 160 mg tablet 160 mg PO DAILY 11/27/22 11/27/22 History hydrochlorothiazide 25 mg tablet 25 mg PO DAILY 11/27/22 11/27/22 History ibuprofen 400 mg tablet 400 mg PO Q6H PRN Pain 11/27/22 11/27/22 History lisinopril 30 mg tablet 30 mg PO DAILY 11/27/22 11/27/22 History metformin 1,000 mg tablet 1,000 mg PO BIDM 11/27/22 11/27/22 History potassium chloride 10 mEq 10 meq PO BID 11/27/22 11/27/22 History tablet,extended release(part/cryst) (Klor-Con M) Patient History Medical History Diabetes Diabetes mellitus, type II Dyslipidemia HTN (hypertension) Surgical History History of cholecystectomy Family History Other Breast cancer Social History (Updated 11/27/22 @ 20:57 by Deedee Oro PA-C) Smoking Status: Never smoker Hx Alcohol Use: No Hx Substance Use: No Preferred Language: Argentine Communication Ability: Effective Lehr Attendant Required: No Beliefs That Will Affect Care: None Current Living Situation: Family Current Living Situation Comment: SON LIVES WITH PT Feels Safe at Home: Yes Safety Concerns: Feels Safe At This Time Assistive Devices: None Review of Systems +neck pain Physical Exam Neurological Examination: Mental Status: Awake and alert. Oriented to person, place, and time. Fluent. Comprehension intact. Affect appropriate. Cranial Nerves: II: pupils 3/3 to 2/2 III/IV/: Versions intact without nystagmus, no gaze preference. VII: Facial expression symmetric VIII: Hearing intact to voice IX/X: Palate elevates symmetrically XI: Shoulder shrug symmetric XII: Tongue midline Motor: Strength was symmetric. Reflexes: Unable to assess over telemedicine Results & Data Vital Signs (Past 12 Hours) Vital Signs Temp Pulse Pulse Pulse Resp BP BP 11/28/22 14:37 76 16 145/94 H 11/28/22 14:17 36.5 C 76 18 133/84 11/28/22 14:00 36.5 C 82 16 119/83 11/28/22 13:50 36.2 C L 78 18 124/76 11/28/22 13:40 82 18 127/80 11/28/22 13:30 81 20 134/79 11/28/22 13:26 36.1 C L 85 16 130/83 11/28/22 11:58 36.5 C 85 20 146/88 H 11/28/22 07:30 36.5 C 74 18 134/79 Pulse Ox O2 Del Method O2 Flow Rate 11/28/22 14:37 98 Room Air 11/28/22 14:17 98 Room Air 11/28/22 14:00 94 Room Air 11/28/22 13:50 96 Room Air 11/28/22 13:40 97 Room Air 11/28/22 13:30 99 Room Air 11/28/22 13:26 98 Oxymask 6 11/28/22 11:58 97 Room Air 11/28/22 07:30 97 Room Air Laboratory Results Abnormal lab results 11/27/22 11/27/22 11/28/22 Range/Units 18:17 21:18 05:34 [place] # (Auto) (0.11-0.59) K/uL Glucose (70-99(Fasting)) mg/dl POC Glucose 111 H 130 H 128 H (70-99) mg/dl 11/28/22 11/28/22 11/28/22 Range/Units 06:53 06:53 11:56 [place] # (Auto) 0.63 H (0.11-0.59) K/uL Glucose 135 H (70-99(Fasting)) mg/dl POC Glucose 117 H (70-99) mg/dl 11/28/22 Range/Units 13:30 [place] # (Auto) (0.11-0.59) K/uL Glucose (70-99(Fasting)) mg/dl POC Glucose 102 H (70-99) mg/dl Diagnostic Findings MRI - L petrous meningioma, L temporal arachnoid cyst
--- NOTE | 2022-11-28 16:34 | Discharge Summary ---
Discharge Summary Date of Service November 28, 2022 Notes For Next Care Provider Admitted with neck pain, incidentally found to have findings of meningioma at skull base. Neuro feels neck pain more consistent with acute strain, meningioma likely chronic. F/u with outpatient neurosurgery for tumor tracking. Medication Changes From Visit Flexeril PRN for muscle spasm Admission HPI Per Admitting Provider Patient is 57-year-old female with PMH HTN, dyslipidemia, DM II presented to ER with complaint of neck pain x3 days. Patient states has been having ongoing dizziness with looking forward and bending down. Also had reported some left sided headache several months ago. Was seen at PCP's office in 07/2022 and had c- spine x-ray that showed degenerative changes. US head and neck from 08/2022 showed nodules in left thyroid node and repeat ultrasound was recommended in one year. Patient states 3 days ago lifted her niece. After she started with pain to posterior superior neck and inferior occipital region. Patient reports pain is pulsatile in nature. Pain aggravated with range of motion of head and neck. States now also feeling dizzy with movement of head up and down. She states she feels like she has had some blurry vision when the pain is more severe and pulsatile in nature. Patient states is physically active and gardens and push mows a large yard. Denies any exertional SOB/CP. Denies fever/chills, diaphoresis, N/V/D/C, syncope, vision loss, diplopia, CP, SOB, palpitations, cough, sore throat, choking, ear discharge, tinnitus rhinorrhea, abdominal pain, paresthesias, extremity weakness, extremity edema, rashes, urinary symptoms. Admission Exam Per Admitting Provider General: no acute distress, WDWN Head: normocephalic, atraumatic Eyes: PERRL, EOM's intact, conjunctiva non-injected, anicteric ENT: normal inspection external ears, nose, mucous membranes moist Neck: supple, trachea midline, +tenderness to palpation posterior superior aspect neck, +spasm noted right paraspinous musculature, no skin discoloration, +tenderness with ROM neck Lungs: clear, no respiratory distress, no wheezing/rhonchi/rales CV: RRR, no murmur, no pretibial edema Abd: normal BS, soft, non-tender Ext: no cyanosis, no calf tenderness Neuro: A&O x 3, normal affect, visual bowden intact. facial sensation is intact and symmetric, face is strong and symmetric, hearing grossly intact, soft palate elevates symmetrically, no dysarthria, shoulder shrug intact tongue is midline, normal movement, no fasciculations. Strength 5/5 throughout and equal bilaterally Skin: warm, dry Principal Dx & Hospital Course #1 = Principal Diagnosis (1) Skull lesion: (2) Acute neck pain: (3) Abnormal head CT: (4) Diabetes mellitus, type II: (5) HTN (hypertension): (6) Dyslipidemia: Plan Patient is 57-year-old female with PMH HTN, dyslipidemia, DM II presented to ER with complaint of neck pain x3 days. Patient states has been having ongoing dizziness with looking forward and bending down. CTA head/neck revealed a left skull base lesion and brain MRI further characterized lesion as highly suggestive of meningioma of skull base. Per neurology consultation, do not feel neck pain is related to meningioma finding but rather an acute neck strain due to recent activities such as painting. Recommend trial of muscle relaxant as well as rest/ice therapy and tylenol as needed. Will need neurosurgery referral for tumor tracking purposes as an outpatient. Patient hemodynamically stable at time of discharge home. Discharge Exam Gen: WD/WN, NAD, sitting in bedside chair, A&Ox3 HEENT: Normocephalic, atraumatic, conjunctivae moist, sclerae anicteric, mucous membranes moist Neck: + TTP posterior superior aspect of neck. ROM limited 2/2 pain Lung: Clear to Auscultation bilaterally, no wheezes/rales/rhonchi Heart: Regular rate, regular rhythm, no murmurs, rubs, or gallops Abdomen: Soft, NT, ND +BS x 4 Extremities: no edema Skin: Warm, no rash Updated Medication List Medication Instructions Recorded Confirmed Type aspirin 81 mg tablet,delayed 81 mg PO DAILY 11/27/22 11/27/22 History release dulaglutide 1.5 mg/0.5 mL 1.5 mg subcut WK 11/27/22 11/27/22 History subcutaneous pen injector (Trulicity) empagliflozin 25 mg tablet 25 mg PO DAILY 11/27/22 11/27/22 History (Jardiance) ezetimibe 10 mg tablet 10 mg PO DAILY 11/27/22 11/27/22 History fenofibrate 160 mg tablet 160 mg PO DAILY 11/27/22 11/27/22 History hydrochlorothiazide 25 mg tablet 25 mg PO DAILY 11/27/22 11/27/22 History ibuprofen 400 mg tablet 400 mg PO Q6H PRN Pain 11/27/22 11/27/22 History lisinopril 30 mg tablet 30 mg PO DAILY 11/27/22 11/27/22 History metformin 1,000 mg tablet 1,000 mg PO BIDM 11/27/22 11/27/22 History potassium chloride 10 mEq 10 meq PO BID 11/27/22 11/27/22 History tablet,extended release(part/cryst) (Klor-Con M) cyclobenzaprine 5 mg tablet 5 mg PO Q8H PRN muscle spasm #12 11/28/22 Rx tabs Hospital Stay Data Consultations 11/27/22 18:26 ED Decision to Admit Stat 11/27/22 21:06 Consult Anesthesiology Routine Consult Neurology Routine Procedures Performed Operation Date: 11/28/22 12:30 <No data on this case meets the specified criteria> Diagnostic Imagining Performed 11/27/22 13:13 CT angio head wo/w Stat CT angio neck with con Stat 11/28/22 12:30 MR brain wo/w con Routine Pending Results Patient Have Any Pending Studies at Discharge: No Discharge Instructions Given to Patient (Per Discharging Provider) Admitted with acute neck pain and CTA head/neck revealed a left skull base lesion Brain MRI highly suggestive of meningioma of skull base Per neurology evaluation, do not feel neck pain is related to meningioma finding but rather an acute neck strain due to recent activities such as painting Recommend trial of muscle relaxant as well as rest/ice therapy and tylenol as needed Will need neurosurgery referral for tumor tracking purposes as an outpatient MEDICATION CHANGES: Flexeril (Cyclobenzaprine) 5mg every 8 hours as needed for neck discomfort PENDING TEST RESULTS: None RECOMMENDATIONS FOR FOLLOW-UP: Follow up with PCP as scheduled. Will need neurosurgery referral. Continue medication regimen as scheduled aside from changes noted above. OTHER INSTRUCTIONS: Seek medical attention if you have: * temperature above 101 * chest pain or trouble breathing * abdominal pain, nausea, vomiting * diarrhea, dark stools or bloody stools * any unanswered questions or concerns Call 911 if symptoms are severe. Please take good care of yourself. Call if you have any questions or problems. You can reach a [facility] hospitalist on duty at [facility] 24 hours a day by calling [phone]. Total Time Total Time Spent Total Time Spent (In Minutes): 50 Supervising Physician Co-Signing Physician Notes Patient is seen and examined at bedside. I personally seen and examined the patient on the day of discharge. I personally reviewed the record. Patient is informed to follow up with Neurosurgery for for further evaluation and management of Meningioma. Patient's care is coordinated with Tasia Low PA-C. Please refer to the documentation above for details of patient's presentation and for discussion of Care.
--- NOTE | 2022-11-29 05:56 | Electrocardiogram Report ---
Test Reason : Blood Pressure : / mmHG Vent. Rate : 072 BPM Atrial Rate : 072 BPM P-R Int : 190 ms QRS Dur : 076 ms QT Int : 394 ms P-R-T Axes : 047 049 026 degrees QTc Int : 431 ms Normal sinus rhythm Low voltage QRS Borderline ECG No previous ECGs available Confirmed by Suhas Duffy ([id number]) on 11/29/2022 5:56:28 AM Referred By: REFERRED SELF Confirmed By:Suhas Duffy
== END 2022-11-28 17:16 | disposition home or self-care (01) ==
LOC: ED 13:01 → 3N 13:01 → SUATTDRO 17:34 → 3N 20:29